=== PATIENT | female | born 1965 | race Caucasian/White ===

== ENCOUNTER 2023-03-24 13:03 | Inpatient (IN) | payer MEDICAID ==
[~2023-03-24] VITALS: Ht 152.4 cm; Wt 68.9 kg
[2023-03-24] MEDS ORDERED: ZOLPIDEM TARTRATE 10 MG TABLET PO PRN (15:00)
[2023-03-24 15:31] LABS: GLUCOMETER DEV NAME(LOC) POC.BV; POC SARS-COV2 AG, FIA NEGATIVE (NEGATIVE)
[2023-03-24] MEDS: LORazepam 2 MG TABLET PO PRN (16:35)
[2023-03-24] MEDS: HALOPERIDOL 5 MG TABLET PO PRN (16:35)
[2023-03-24 16:36] VITALS: BP 110/72; PULSE 114; RESP 16; TEMP 97.7
[2023-03-24 16:54] VITALS: BP 110/73; PULSE 104; RESP 18; TEMP 97.7; O2SAT 98
[2023-03-24] MEDS ORDERED: INFLUENZA VIRUS VACCINE QVS 2023-24 (6MO+)/PF 60 MCG/0.5 ML SYRINGE IM. ONE (18:30)
[2023-03-24] MEDS ORDERED: PNEUMOCOCCAL VACCINE POLYVALENT 0.5 ML SYRINGE [PPSV23] IM. ONE (18:30)
[2023-03-24 23:45] VITALS: BP 112/82; PULSE 108; RESP 18; TEMP 97.7; O2SAT 97
[2023-03-25 07:43] LABS: BASOPHILS % (AUTO) 0.5 % (0.0-2.0); EOSINOPHILS % (AUTO) 2.8 % (1.0-6.0); HEMOGLOBIN 12.2 g/dL (12.0-16.0); LYMPHOCYTES % (AUTO) 29.7 % (22.0-44.0); MEAN CORPUSCULAR HEMOGLOBIN 26.9 pg (26.0-34.0); MEAN CORPUSCULAR HGB CONC 33.9 G/dL (31.0-37.0); MEAN CORPUSCULAR VOLUME 79 fL (80-100); MONOCYTES # (AUTO) 0.6 K/uL (0.1-1.0); MONOCYTES % (AUTO) 8.7 % (2.0-9.0); NEUTROPHILS % (AUTO) 58.3 % (40.0-70.0); PLATELET COUNT (AUTO) 348 K/uL (150-450); RED BLOOD CELL COUNT(AUTO) 4.53 MIL/uL (4.00-5.20); RED CELL DISTRIBUTION WIDTH 13.4 % (11.5-14.5); WHITE BLOOD COUNT (AUTO) 6.9 K/uL (4.5-11.0)
[2023-03-25] MEDS: HALOPERIDOL 5 MG TABLET PO PRN ×2 (07:56→17:58)
[2023-03-25] MEDS: LORazepam 2 MG TABLET PO PRN ×2 (07:56→17:58)
[2023-03-25 08:07] VITALS: BP 110/67; PULSE 100; RESP 17; TEMP 98.2; O2SAT 98
[2023-03-25 08:14] LABS: HEMOGLOBIN A1C 7.1 % (3.8-5.6)
[2023-03-25 08:17] LABS: ALBUMIN 3.1 g/dL (3.4-5.0); BILIRUBIN,TOTAL 0.3 mg/dL (0.1-1.0); CALCIUM, TOTAL 8.7 mg/dL (8.8-10.5); CHOL/HDL RATIO 3.3 (3.9-5.7); CREATININE 1.63 mg/dL (0.60-1.30); FREE T4 (FREE THYROXINE) 1.01 ng/dL (0.76-1.46); THYROID STIMULATING HORMONE 0.68 uIU/mL (0.36-3.74); TOTAL PROTEIN, SERUM 6.5 g/dL (6.4-8.2)
[2023-03-25] MEDS ORDERED: OLAN5TAB77 PO (11:55)
[2023-03-25] MEDS ORDERED: TRAZ-252 PO (11:55)
[2023-03-25] MEDS ORDERED: ALBUTEROL SULFATE HFA 90 MCG/PUFF 8 GM INHALER IH PRN (12:15)
[2023-03-25] MEDS ORDERED: DOCUSATE SODIUM 100 MG CAPSULE PO PRN (12:15)
[2023-03-25] MEDS ORDERED: IBUPROFEN 400 MG TABLET PO PRN (12:15)
[2023-03-25] MEDS ORDERED: GuaiFENesin/D-METHORPHAN [SUGAR-FREE] 200-20MG/10 ML SYRUP UDCUP PO PRN (12:15)
[2023-03-25] MEDS ORDERED: MAG HYDROX/ALUMINUM HYD/SIMETH ES 30 ML SUSPENSION UDCUP PO PRN (12:15)
[2023-03-25] MEDS ORDERED: CloNIDine HCL 0.1 MG TABLET PO PRN (12:15)
[2023-03-25] MEDS ORDERED: ONDANSETRON HCL 4 MG TABLET PO PRN (12:15)
[2023-03-25] MEDS ORDERED: LOPERAMIDE HCL 2 MG CAPSULE PO PRN (12:15)
[2023-03-25] MEDS: OLANZapine 10 MG TABLET PO SCH ×2 (12:15→20:01)
[2023-03-25] MEDS ORDERED: ACETAMINOPHEN 325 MG TABLET PO PRN (12:15)
[2023-03-25] MEDS ORDERED: PETROLATUM,WHITE 28 GM JELLY TP PRN (12:15)
[2023-03-25] MEDS ORDERED: NICOTINE 14 MG/24 HOUR PATCH TD PRN (12:15)
[2023-03-25] MEDS ORDERED: MAGNESIUM HYDROXIDE SUSPENSION 30 ML UDCUP PO PRN (12:15)
[2023-03-25] MEDS: TraZODone HCL 150 MG TABLET PO SCH (20:01)
[2023-03-25 20:05] VITALS: BP 106/72; PULSE 100; RESP 18; TEMP 97; O2SAT 98
[2023-03-26] MEDS: LORazepam 2 MG TABLET PO PRN ×2 (08:05→12:32)
[2023-03-26] MEDS: OLANZapine 10 MG TABLET PO SCH ×3 (08:05→20:41)
[2023-03-26 08:13] VITALS: BP 134/69; PULSE 86; RESP 18; TEMP 97.9; O2SAT 97
[2023-03-26 08:23] LABS: CHOL/HDL RATIO 3.4 (3.9-5.7); THYROID STIMULATING HORMONE 0.58 uIU/mL (0.36-3.74)
[2023-03-26] MEDS: HALOPERIDOL 5 MG TABLET PO PRN (12:32)
[2023-03-26 18:53] VITALS: BP 100/62; PULSE 68; RESP 17; TEMP 97; O2SAT 98
[2023-03-26 19:53] VITALS: RESP 18
[2023-03-26] MEDS: TraZODone HCL 150 MG TABLET PO SCH ×2 (20:17→20:41)
[2023-03-26 20:57] VITALS: BP 100/62; PULSE 68; RESP 20; TEMP 97; O2SAT 98
[2023-03-27 08:02] LABS: ANION GAP 5 mmol/L (8-16); CALCIUM, TOTAL 9.1 mg/dL (8.8-10.5); CARBON DIOXIDE 32 mmol/L (22-29); CHLORIDE 100 mmol/L (98-107); CREATININE 0.79 mg/dL (0.60-1.30); GLOMERULAR FILTR. RATE CALC > 60 mL/min (>60); GLUCOSE,RANDOM 124 mg/dL (70-110); POTASSIUM 3.5 mmol/L (3.5-5.1); SODIUM SERUM 137 mmol/L (136-145); UREA NITROGEN, BLOOD 16 mg/dL (7-18)
[2023-03-27] MEDS: OLANZapine 10 MG TABLET PO SCH (08:03)
[2023-03-27] MEDS: LORazepam 2 MG TABLET PO PRN (08:03)
[2023-03-27] MEDS: HALOPERIDOL 5 MG TABLET PO PRN ×2 (08:03)
[2023-03-27 08:39] VITALS: BP 131/73; PULSE 100; RESP 18; TEMP 97.6; O2SAT 98
[2023-03-27] MEDS ORDERED: TRAZ150T80 PO (14:28)
[2023-03-27] MEDS ORDERED: OLAN10TA74 PO ×2 (14:29→15:42)
[2023-03-27] MEDS ORDERED: TRAZ-283 PO (15:42)
== END 2023-03-27 15:30 | disposition home or self-care (01) | DRG 750 ==
LOC: B3A 14:45
PROVIDERS: ADMIT Psychiatry & Neurology Psychiatry; ATTEND Psychiatry & Neurology Psychiatry
PROC: GZHZZZZ Group Psychotherapy (ICD-10-PCS; principal; 2023-03-25)
DX: F20.0 Paranoid schizophrenia (principal); N17.9 Acute kidney failure, unspecified; E11.9 Type 2 diabetes mellitus without complications; G47.00 Insomnia, unspecified; Z20.822 Contact with and (suspected) exposure to COVID-19; R45.851 Suicidal ideations; Z79.899 Other long term (current) drug therapy
CPT/HCPCS: 80048; 80053; 80061; 83036; 84439; 84443; 85025